=== PATIENT | female | born 1960 ===

== ENCOUNTER 2017-02-01 07:40 | Day surgery (SDC) | payer OTHER ==
[2017-02-01 08:28] VITALS: O2SAT 100
[2017-02-01 08:35] VITALS: BMI 32.1
[2017-02-01] MEDS ORDERED: Propofol 10 mg/ml Inj (20 ML) ONE (10:06)
[2017-02-01] MEDS ORDERED: Midazolam 2 MG/2 ML VIAL ONE (10:06)
[2017-02-01 10:57] VITALS: TEMP 97.3
[2017-02-01 11:34] VITALS: BP 117/69; PULSE 57; RESP 14
== END 2017-02-01 11:33 | disposition home or self-care (01) ==
LOC: C.ENDO 07:40
PROVIDERS: ATTEND Internal Medicine Gastroenterology
DX: K63.89 Other specified diseases of intestine (principal); K64.4 Residual hemorrhoidal skin tags; K64.8 Other hemorrhoids
CPT/HCPCS: 45380; 88305; J2250; J2704; J3010